=== PATIENT | male | born 1990 | race Hispanic/Latino ===

== ENCOUNTER 2024-12-08 05:29 | Emergency (ER) | payer OTHER, SELFPAY ==
[2024-12-08 05:33] VITALS: BP 140/88
--- NOTE | 2024-12-08 07:46 | ED.GENMED ---
History of Present Illness
General
Chief Complaint: Cold/Flu/URI Symptoms
Time Seen by Provider: 12/08/24 07:08
History of Present Illness
History of Present Illness:
34-year-old male presents to the emergency department for evaluation of chest discomfort and shortness of breath as well as postnasal drip today at causes him to have a choking sensation for the past 2 to 3 days. He reports minimal coughing mostly
in the morning or at nighttime. No fevers or chills. Denies nausea vomiting or diarrhea. Does have history of asthma but does not have an inhaler
Past History
Past History
ED Past Medical History: GERD, Valvular disease (congenital valvular disease-valve repair at age 11.), Psychiatric (anxiety) and Other (truncal shingles 06/2019); Negative CAD
ED Past Surgical History: Cardiac (Valve repair at 11 years of age)
Social History
Tobacco: Non-smoker
Alcohol: None
Drug: None
Personal: Single
Living: with family (with brother)
Employment: Employed (self employed)
Family History
Family History: Other (noncontributory)
Review of Systems
Review of Systems
Allergies reviewed?: Yes
All Other Systems: ROS reviewed and negative except as documented in HPI and ROS
Phy Exam
Physical Exam
Physical Exam:
GEN: Well appearing, NAD, WDWN
HEENT: Oral mucosa moist, no scleral icterus, oropharynx clear
Cardiac: Regular rate and rhythm, no murmurs
Lung: No respiratory distress, no tachypnea, lungs clear to auscultation bilaterally
MSK: No gross deformity or injuries
Skin: Good color, no pallor or jaundice, no rashes
Neuro: AO x3, moves all extremities freely
Psych: Calm, cooperative
Course
Orders/Labs/Results
Orders:
Orders
12/08/24 05:37
ECG [Electrocardiogram (*1)] Urgent
Reason for Study: Shortness of Breath
CR Chest - 2 Views Urgent
Comment:
Reason For Exam: SOB, COLD SX
12/08/24 05:38
EKG- Treatment ONCE
Vital Signs
Initial and Last Documented VS:
Initial Vital Signs
Temp Pulse Resp BP Pulse Ox
97.8 F 64 20 140/88 100
12/08/24 05:33 12/08/24 05:33 12/08/24 05:33 12/08/24 05:33 12/08/24 05:33
Last Documented Vital Signs
Temp Pulse Resp BP Pulse Ox
97.8 F 84 16 127/86 98
12/08/24 05:33 12/08/24 08:00 12/08/24 08:00 12/08/24 08:00 12/08/24 08:00
MDM/Problems Addressed
MDM/Problems Addressed:
Exam is benign, chest x-ray independently interpreted by me shows no acute infiltrates, he is afebrile and well-appearing. EKG does show some ST elevations inferiorly but these are comparable to past EKGs, may be reflective of chronic changes in
the setting of his pediatric heart valve repair. Sounds as though the patient is waking up with severe postnasal drainage, given underlying history of asthma and allergic rhinitis we will treat with a short course of steroids and provide an inhaler
for as needed relief
*Critical Care Note
Total Time (30-74mins, 75-104mins- exclusive of procedures): Not Applicable
ED Attending Note
-
Portions of this chart may have been created with voice recognition software.� Occasional wrong word or��sound alike� substitutions may have occurred due to the inherent limitations of voice recognition software.
Discharge Plan
Departure
Patient Disposition: Home (Routine Discharge)
Date of Disposition: 12/08/24
Time of Disposition: 07:48
Patient with high blood pressure during this ER visit?: No
Discharge Problem:
Post-nasal drip
Instructions: Seasonal Allergies ED
Prescriptions:
New
albuterol sulfate 90 mcg/actuation HFA aerosol inhaler
2 puff inhalation Q6H PRN (Reason: shortness of breath or wheezing) Qty: 6.7 0RF
methylprednisolone [Medrol ([place])] 4 mg tablets,dose pack
See Rx Instructions .ROUTE .COMPLEX Qty: 21 0RF
Rx Instructions:
orally per package directions
No Action
montelukast 10 MG tablet
10 mg PO DAILY
Interventions
Interventions:
*Risk Screen - Suicide Last Done: 12/08/24 05:33
*General Assessment Last Done: 12/08/24 07:40
*Neglect/Abuse Screening Last Done: 12/08/24 05:33
*ED COVID-19 Vaccine History Last Done: 12/08/24 07:40
*Nursing Disposition Last Done: 12/08/24 08:00
ED- Pulmonary Assessment Last Done: 12/08/24 07:40
Discharge Date and Time
Discharge Date/Time: 12/08/24 08:01
Print Language: ESTONIAN
[2024-12-08 08:00] VITALS: BP 127/86
== END 2024-12-08 08:01 | disposition home or self-care (01) ==
LOC: EMR 05:29
PROVIDERS: EMERGENCY PHYSICIAN Emergency Medicine; FAMILY PHYSICIAN Family Medicine
DX: R09.82 Postnasal drip (principal); J45.909 Unspecified asthma, uncomplicated; K21.9 Gastro-esophageal reflux disease without esophagitis; I38 Endocarditis, valve unspecified; F41.9 Anxiety disorder, unspecified
CPT/HCPCS: 99283; 71046; 93005